=== PATIENT | male | born 1995 | race Caucasian/White ===

== ENCOUNTER 2018-07-30 22:15 | Emergency (ER) | payer SELFPAY ==
[~2018-07-30] VITALS: Ht 167.6 cm; Wt 68.0 kg
[2018-07-31] MEDS ORDERED: LORAZEPAM 2MG/ML CPJ IV STA (01:03)
[2018-07-31 01:39] LABS: HEMATOCRIT. 47.6 % (42.0-52.0); HEMOGLOBIN. 16.5 g/dL (14.0-18.0); MEAN CORPUSCULAR HEMOGLOBIN 30.2 pg (28.0-32.0); MEAN CORPUSCULAR VOLUME 87.3 fL (80.0-94.0); MEAN PLATELET VOLUME 8.2 fl (7.4-10.4); PLATELET 249 x1000/uL (130-400); RED BLOOD CELL COUNT 5.45 mill/uL (4.7-6.1); RED CELL DISTRIBUTION WIDTH 12.9 % (11.6-14.6)
[2018-07-31 01:42] LABS: CLARITY URINE CLEAR (CLEAR); COLOR URINE DARK YELLOW (YELLOW); KETONES URINE 1+ (NEGATIVE); LEUKOCYTE ESTERASE URINE TRACE (NEGATIVE); NITRITE URINE NEGATIVE (NEGATIVE); OCCULT BLOOD URINE 2+ (NEGATIVE); PH URINE 5.5 (4.5-8.0); PROTEIN URINE 1+ (NEGATIVE); SPECIFIC GRAVITY URINE 1.025 (1.005-1.030)
[2018-07-31 01:45] LABS: CHLORIDE 101 mEq/L (98-107)
[2018-07-31 01:51] LABS: ETHANOL BLOOD < 10 mg/dL
[2018-07-31 02:33] LABS: *AMPHETAMINES SCREEN URINE PRESUMTIVE POSITIVE (NEGATIVE); *BARBITURATES SCREEN URINE NEGATIVE (NEGATIVE)
[2018-07-31 02:34] LABS: *BENZODIAZEPINES SCREEN URINE NEGATIVE (NEGATIVE); *COCAINE SCREEN URINE NEGATIVE (NEGATIVE)
[2018-07-31 02:35] LABS: CANNABINOID URINE SCREEN PRESUMTIVE POSITIVE (NEGATIVE); METHADONE URINE SCREEN NEGATIVE (NEGATIVE); OPIATES URINE SCREEN NEGATIVE (NEGATIVE); PHENCYCLIDINE URINE SCREEN NEGATIVE (NEGATIVE)
[2018-07-31] MEDS ORDERED: CEFTRIAXONE SODIUM 1 G/VIAL IV ONE (04:30)
[2018-07-31] MEDS ORDERED: CEFTRIAXONE 1 G PREMIX 50 ML IV ONE (04:45)
[2018-07-31 05:36] LABS: ATYPICAL LYMPHOCYTES 1; PLATELET ESTIMATE NORMAL
[2018-07-31 15:55] VITALS: BP 110/73
== END 2018-07-31 17:12 | disposition home or self-care (01) ==
LOC: ER 22:15
DX: F22 Delusional disorders (principal); R44.0 Auditory hallucinations; R44.1 Visual hallucinations; N39.0 Urinary tract infection, site not specified; G47.00 Insomnia, unspecified; F12.10 Cannabis abuse, uncomplicated; F15.10 Other stimulant abuse, uncomplicated
CPT/HCPCS: 36415; 80053; 80305; 81003; 85025; 96365; 96375; 99284; G0482; J0696; J2060

== ENCOUNTER 2020-01-04 17:12 | Emergency (ER) | payer MEDICAID ==
[~2020-01-04] VITALS: Ht 167.6 cm; Wt 68.0 kg
[2020-01-04] MEDS ORDERED: SODIUM CHLORIDE 0.9% 1,000 ML IV ONE (18:09)
[2020-01-04] MEDS ORDERED: LIDOCAINE HCL/PF 1% 10 MG/ML 5ML VIAL IJ ONE (18:15)
[2020-01-04] MEDS ORDERED: LIDOCAINE 1%/EPI 1:100,000 10 ML VIAL IJ ONE (18:15)
[2020-01-04] MEDS ORDERED: LIDOCAINE HCL/EPINEPHRINE 1%-EPI 1:100,000 20 ML VIAL INFIL NR (18:30)
[2020-01-04 20:18] VITALS: BP 117/83
== END 2020-01-04 21:11 | disposition home or self-care (01) ==
LOC: ER 17:12
DX: S01.01XA Laceration without foreign body of scalp, initial encounter (principal); W18.39XA Other fall on same level, initial encounter; Y93.89 Activity, other specified; Y92.89 Other specified places as the place of occurrence of the external cause; Y99.8 Other external cause status; F10.129 Alcohol abuse with intoxication, unspecified; Y90.8 Blood alcohol level of 240 mg/100 ml or more; F17.290 Nicotine dependence, other tobacco product, uncomplicated
CPT/HCPCS: 12002; 36415; 70450; 80320; 99284; J3490; J7030; G0480

== ENCOUNTER 2020-01-12 08:29 | Emergency (ER) | payer MEDICAID ==
[~2020-01-12] VITALS: Ht 162.6 cm; Wt 65.0 kg
[2020-01-12 08:57] VITALS: BP 121/75
== END 2020-01-12 10:15 | disposition home or self-care (01) ==
LOC: ER 08:29
DX: S01.01XD Laceration without foreign body of scalp, subsequent encounter (principal); X58.XXXD Exposure to other specified factors, subsequent encounter; Z48.02 Encounter for removal of sutures
CPT/HCPCS: 99281

== ENCOUNTER 2020-08-05 03:27 | Emergency (ER) | payer MEDICAID, OTHER ==
[~2020-08-05] VITALS: Ht 165.1 cm; Wt 65.0 kg
[2020-08-05] MEDS: HYDROCODONE/ACETAMINOPHEN 5/325MG TABLET PO ONE (03:45)
[2020-08-05] MEDS: BACITRACIN ZINC OINT UDPKT TOP ONE (06:06)
[2020-08-05 07:06] VITALS: BP 126/73
== END 2020-08-05 07:08 | disposition home or self-care (01) ==
LOC: ER 03:27
DX: G50.1 Atypical facial pain (principal); G89.11 Acute pain due to trauma; Y04.2XXA Assault by strike against or bumped into by another person, initial encounter; Z91.81 History of falling; Y93.89 Activity, other specified; Y92.89 Other specified places as the place of occurrence of the external cause
CPT/HCPCS: 70486; 99285